=== PATIENT | female | born 1975 | race Caucasian/White ===

== ENCOUNTER 2023-05-09 08:06 | Emergency (ER) | payer SELFPAY ==
[2023-05-09 08:10] VITALS: BP 154/81; PULSE 89; RESP 18; TEMP 36.9; O2SAT 97; BMI 42.2
--- NOTE | 2023-05-09 08:13 | NURSING ---
NO OLD EKGS
[2023-05-09 08:14] VITALS: BP 154/81; PULSE 88; RESP 18; TEMP 36.9; O2SAT 98
--- NOTE | 2023-05-09 08:25 | RAD_ITS ---
STUDY: X-RAY CHEST REASON FOR EXAM: Female, 48 years old. Chest pain TECHNIQUE: Frontal view of the chest COMPARISON: None. FINDINGS: The lungs are clear. There are no pleural effusions. There is no pneumothorax. The heart is normal in size. The visualized osseous structures are within normal limits. RAD/Chest 1 View (Portable) IMPRESSION: No acute thoracic pathology. Electronically Signed: Mohinder Gutierrez MD at 8:46 EST ,
[2023-05-09 08:34] LABS: Absolute Lymphocyte Count 1.45 X10^3/uL (0.83-4.51); Absolute Neutrophil Count 4.2 X10^3/uL (2.0-7.7); Basophil# 0.05 X10^3/uL; Basophil% 0.8 % (0-1); Eosinophil# 0.07 X10^3/uL; Eosinophils% 1.1 % (0-5); Hemoglobin 13.7 g/dL (12.0-15.0); Lymphocyte # 1.45 X10^3/ul (0.83-4.51); Lymphocyte % 23.7 % (19-41); Mean Corp Hgb Conc 33.4 g/dL (32-36); Mean Corpuscular Hgb 30.8 pg (27.0-32.0); Mean Corpuscular Volume 92.1 fL (81-99); Mean Platelet Vol. 8.9 fl (6.2-12.0); Monocyte# 0.38 X10^3/uL; Monocyte% 6.2 % (0-10); NRBC Flagged by Analyzer 0 % (0-5); Neutrophil # 4.16 X10^3/uL (2.7-7.7); Neutrophil % 67.9 % (47-70); Platelet Count 335 K/mm3 (150-450); RBC Distribution Width CV 12.7 % (11.6-14.6); Red Blood Count 4.45 M/mm3 (4.2-5.4); White Blood Count 6.1 K/mm3 (4.4-11.0)
[2023-05-09 08:51] LABS: Anion Gap 4 (5-15); BUN 10 mg/dL (7-18); BUN/Creat Ratio 12.6 RATIO (10-20); Calcium,Total 9.3 mg/dL (8.5-10.1); Chloride 107 mmol/L (98-107); Creatinine, Serum 0.79 mg/dL (0.55-1.02); EST Glomerular Filtration Rate 83 mL/min (>60); Est Glom Filt Rate - Afr Amer 100 mL/min (>60); Estimated Creatinine Clearance 86.53 ml/min; Glucose 110 mg/dL (74-106); Potassium 3.7 mmol/L (3.5-5.1); Sodium Level 135 mmol/L (136-145); Troponin-I HS (w/2H Reflex) 4 pg/mL (3.0-54.0)
[2023-05-09 08:54] VITALS: O2SAT 98
--- NOTE | 2023-05-09 09:15 | EDS_ITS ---
HPI History of Present Illness Chief Complaint: Chest Pain Narrative Narrative: 48-year-old female presenting with chest pain and palpitations. Onset was last evening. Patient states she ate a hamburger with onions on it last night and states that it and would typically set off her acid reflux. She is also concerned she might be having anxiety although she does not have a specific history of this. History of [place]. Patient states that earlier this year she had an episode of A-fib with RVR and while in the emergency room had a bumped troponin and was admitted to the hospital. She states she had a normal echocardiogram. Follow-up she had a Holter monitor which showed PVCs. She does occasionally feel PVCs. She is not anticoagulated. Is not on any rate control. Patient states that she was told she does not need any specific follow-up for the A-fib. Patient does relate that while she was in the squad they had her doing vagal maneuvers and blowing through a pen Out of concern she might be in SVT. Patient states that while she was in the emergency room she was given a medication and within seconds to a minute her heart rate went from 2?[address] down to 100 and was sinus. [facility] Medical History A-fib Anemia GERD (gastroesophageal reflux disease) History of alcoholism Hypothyroid Home Medications cholecalciferol (vitamin D3) 125 mcg (5,000 unit) capsule 05/09/23 [History Last Taken 05/09/23 06:00 125] levothyroxine 150 mcg tablet mcg 05/09/23 [History Last Taken 05/09/23 06:00 150 mcg] Allergy/AdvReac Type Severity Reaction Status Date / Time citalopram [From Celexa] Allergy Severe Anaphylaxis Verified 05/09/23 08:10 amoxicillin Allergy Mild Hives Verified 05/09/23 08:10 azithromycin Allergy Mild Rash Verified 05/09/23 08:10 nabumetone [From Relafen] Allergy Mild Hives Verified 05/09/23 08:10 valdecoxib [From Bextra] Allergy Mild TREMORS Verified 05/09/23 08:10 Social History Smoking Status: Current every day smoker tobacco type: cigarettes ROS ROS ED Constitutional Constitutional ED: Denies chills, fever(s) or sweats Eyes Eyes: Denies blurry vision or change in vision ENT ENT ED: Denies ear pain or sore throat Cardiovascular Cardiovascular: Reports chest pain and palpitations; Denies racing heartbeat Respiratory/Chest Respiratory/Chest: Denies cough, dyspnea or sputum Gastrointestinal Gastrointestinal: Denies abdominal pain, constipation, diarrhea, nausea or vomiting Genitourinary Genitourinary ED: Denies dysuria, hematuria or urinary frequency Musculoskeletal Musculoskeletal: Denies arthralgias, myalgias or neck pain Integumentary Denies abscess, Abrasions or rash Neurologic Neurologic: Denies paresthesias or weakness Psychiatric Psychiatric: Reports anxiety; Denies depression, suicidal ideation or suicidal thoughts Endocrine Endocrinology: Denies polydipsia or polyuria EXAM Physical Exam Const Vital Signs: 05/09/23 08:10 05/09/23 08:14 05/09/23 08:19 Temperature 98.4 F 98.4 F Temperature Source Oral Oral Pulse Rate 89 88 Respiratory Rate 18 18 Respiratory Effort Normal Non-Labored Blood Pressure 154/81 H 154/81 H Blood Pressure Mean 105 105 Pulse Ox 97 98 Oxygen Delivery Method Room Air Room Air 05/09/23 08:54 Temperature Temperature Source Pulse Rate Respiratory Rate Respiratory Effort Blood Pressure Blood Pressure Mean Pulse Ox 98 Oxygen Delivery Method Room Air Heart Score History: Slightly/Non-Suspicious ECG: Normal Age: </= 45 years Risk Factors: No Risk Factors Troponin: </= Normal Limit Score: 0 MDM MDM MDM Narrative Medical decision making narrative: Differential includes but is not limited to ACS, PE, pneumonia, muscle strain, costochondritis, GERD, gastritis. Patient states that she is currently symptom- free. Vital signs are stable she is afebrile. She is PERC negative so PE is unlikely. Patient has no specific cardiac history other than A-fib history which sounds a lot like she was in SVT. Negative echocardiogram this year. She has no other cardiac risk factors. EKG on my interpretation shows a sinus rhyth m at 85 bpm without sign of ischemic change or ectopy. Chest x-ray interpretation shows no acute process. CBC and BMP are unremarkable. High- sensitivity troponin is 4. We did discuss patient's symptoms and she states that she does feel very strongly this might be acid reflux related. She states she ate steak and baked potatoes which sometimes will trigger her acid reflux. In addition to that she also states that the onions and catch up on her hamburger would cause her acid reflux symptoms. She states he is very sensitive to most things. She even relates that spring water instead of purified water would cause her symptoms. Ultimately her lab work is all normal I feel she stable for discharge. I gave her return precautions. She had specific questions about PVCs and this was described to her and I reassured her that this is not emergent in nature. Patient can be discharged in stable condition. Impression: 1. Palpitations 2. History of A-fib 3. PVCs Lab Data Attestation: I reviewed the patient's lab results. Labs: Laboratory Results - last 24 hr 05/09/23 08:21 WBC 6.1 RBC 4.45 Hgb 13.7 Hct 41.0 MCV 92.1 MCH 30.8 MCHC 33.4 RDW Std Deviation 43.0 RDW Coeff of Tobias 12.7 Plt Count 335 MPV 8.9 Immature Gran % (Auto) 0.300 Neut % (Auto) 67.9 Lymph % (Auto) 23.7 Sterling % (Auto) 6.2 Eos % (Auto) 1.1 Baso % (Auto) 0.8 Absolute Neuts (auto) 4.2 Absolute Lymphs (auto) 1.45 Nucleated RBC % 0 Sodium 135 L Potassium 3.7 Chloride 107 Carbon Dioxide 24.0 Anion Gap 4 L BUN 10 Creatinine 0.79 Estim Creat Clear Calc 86.53 Est GFR (MDRD) Af Amer 100 Est GFR (MDRD) Non-Af 83 BUN/Creatinine Ratio 12.6 Glucose 110 H Calcium 9.3 Troponin I High Sens 4 Radiography Diagnostic Testing: Clinical Impression(s) from Imaging Studies Chest X-Ray 05/09/23 08:25 IMPRESSION: No acute thoracic pathology. Electronically Signed: Mohinder Gutierrez MD at 8:46 EST , Discharge Plan Triage Chief Complaint: Chest Pain ED Provider: Navdeep Alcaraz Dx/Rx/DC Orders Prescriptions: No Action levothyroxine 150 mcg tablet Patient Comments: take 1 tablet by mouth once daily. cholecalciferol (vitamin D3) 125 mcg (5,000 unit) capsule Patient Comments: Take 1 capsule by mouth once daily. Primary Care Provider: Care Physician,No Primary Referrals: Care Physician,No Primary [Primary Care Provider] -
[2023-05-09 09:47] VITALS: BP 126/75; PULSE 72; RESP 15; TEMP 36.8; O2SAT 98
[2023-05-09 10:30] LABS: Reflex Troponin-HS? (from REC) Y
== END 2023-05-09 09:48 | disposition home or self-care (01) ==
PROVIDERS: Emergency Provider Student in an Organized Health Care Education/Training Program; Visit Provider Student in an Organized Health Care Education/Training Program
DX: I48.91 Unspecified atrial fibrillation (principal); I49.3 Ventricular premature depolarization; F17.210 Nicotine dependence, cigarettes, uncomplicated; R00.2 Palpitations; E03.9 Hypothyroidism, unspecified; Z79.899 Other long term (current) drug therapy
CPT/HCPCS: 71045; 80048; 84484; 85025; 93005; 99285; A4216